=== PATIENT | female | born 1980 | race Caucasian/White ===

== ENCOUNTER 2022-10-10 12:48 | Emergency (ER) | payer MEDICAID, OTHER ==
[~2022-10-10] VITALS: Ht 170.2 cm; Wt 66.0 kg
[2022-10-10 12:51] VITALS: O2SAT 96
[2022-10-10 17:21] VITALS: BP_DIAS 68; PULSE 76; RESP 17; TEMP 97.9
[2022-10-10 17:26] VITALS: BP_SYST 116
== END 2022-10-10 17:37 | disposition home or self-care (01) ==
LOC: ER 12:48
DX: K80.50 Calculus of bile duct without cholangitis or cholecystitis without obstruction (principal); R55 Syncope and collapse
CPT/HCPCS: 76705; 99284